=== PATIENT | male | born 1965 | race Two or more races ===

== ENCOUNTER → 2016-05-25 | Outpatient (REF) | payer OTHER ==
[2016-05-28 14:16] LABS: D001-IgE D pteronyssinus 2.83 kU/L (Class III); E001-IgE Cat Epith/Dander 0.13 kU/L (Class 0/I); E005-IgE Dog Dander 0.15 kU/L (Class 0/I); G002-IgE Bermuda Grass 0.13 kU/L (Class 0/I); M001-IgE Penicillium chrysogen < 0.10 kU/L (Class 0); M002 IgE Cladosporium herbaru < 0.10 kU/L (Class 0); M003 IgE Aspergillus fumigatu < 0.10 kU/L (Class 0); M006-IgE Alternaria alternata 0.12 kU/L (Class 0/I); T001-IgE Maple/Box Elder 0.11 kU/L (Class 0/I); T003-IgE Common Silver Birch < 0.10 kU/L (Class 0); T007-IgE Oak, White 0.17 kU/L (Class 0/I); T008-IgE Elm, American 0.13 kU/L (Class 0/I); T015-IgE Ash, White 0.15 kU/L (Class 0/I); T041-IgE Hickory, White < 0.10 kU/L (Class 0); W001-IgE Ragweed, Short 0.23 kU/L (Class 0/I); W009-IgE Plantain, English 0.13 kU/L (Class 0/I); W014-IgE Pigweed, Rough < 0.10 kU/L (Class 0)
== END ==
LOC: M LAB REF 16:59
PROVIDERS: ATTEND Internal Medicine Pulmonary Disease
DX: J45.40 Moderate persistent asthma, uncomplicated (principal)